=== PATIENT | male | born 1995 | race American Indian/Alaskan Native ===

== ENCOUNTER 2017-03-05 22:11 | Emergency (ER) | payer OTHER ==
[2017-03-05 22:38] VITALS: O2SAT 98
[2017-03-05] MEDS ORDERED: Lidocaine 2% Inj (20ml) INFIL ONE (22:53)
[2017-03-05] MEDS ORDERED: Lidocaine 1% Inj (20ml) ONE (22:54)
[2017-03-05] MEDS ORDERED: Lidocaine 2% Inj (20ml) ONE (22:55)
--- NOTE | 2017-03-05 22:56 | C.PDOC ---
History Of Present Illness 21 yo male come in for evaluation of Right index finger laceration sustained hour [employer]. Pt reports, " cut my finger with piece of metal". Noted mild oozing from wound. Otherwise, pt denies fever, chills, deformity,weakness, sensory or vascular deficits to injured finger. Ambulate to Ed for evaluation, not in any apparent distress. Time Seen by Provider: 03/05/17 22:40 Chief Complaint (Nursing): Abnormal Skin Integrity History Per: Patient Onset/Duration Of Symptoms: Sudden Onset Past Medical History Reviewed: Historical Data, Nursing Documentation, Vital Signs Vital Signs: Last Vital Signs Temp 97.6 F 03/05/17 23:13 Pulse 60 03/05/17 23:13 Resp 18 03/05/17 23:13 BP 118/75 03/05/17 23:13 Pulse Ox 99 03/05/17 23:13 - Medical History PMH: No Chronic Diseases Family History: States: No Known Family Hx - Social History Hx Alcohol Use: No Hx Substance Use: No - Immunization History Hx Tetanus Toxoid Vaccination: Yes (2 yrs ago) Hx Influenza Vaccination: Yes Hx Pneumococcal Vaccination: Yes Review Of Systems Except As Marked, All Systems Reviewed And Found Negative. Constitutional: Negative for: Fever, Chills Musculoskeletal: Positive for: Hand Pain Skin: Positive for: Lesions Neurological: Negative for: Weakness, Numbness Physical Exam - Physical Exam Appears: Well, Non-toxic, No Acute Distress Skin: Normal Color, Warm, Other ((+)1cm superficial laceration medial aspect Right 2nd distal phalanx over DIPJ, mild bloody oozing noted. FAROM, no tendon or ligament injury noted. No wound FB.) Extremity: Normal ROM (Right hand), No Tenderness, Capillary Refill (less than 2sec to Right hand), No Deformity, No Swelling Neurological/Psych: Oriented x3, Normal Speech, Normal Motor, Normal Sensation, Normal Reflexes ED Course And Treatment O2 Sat by Pulse Oximetry: 98 Progress Note: On re-evaluation, pt is afebrile, hemodynamiclay stable. Non- toxic. Right hand: laceration to index finger repaired w/skin adhesive. FAROM, no neurovascular deficits. tetanus is UTD. Pt was advised on course of ds and wound care. ref. to f/u with PMD in 2-3 days for re-eavl. Return if any sign of infection, or any worsening or new changes. Laceration - Laceration Repair Right index Wound Length (In cm): 1cm Description Of Wound: Linear Wound Examination: Irrigated With Saline, No FB With Wound Exploration Wound Closure: Steri Strips, Skin Glue Wound Complexity: Simple Disposition Counseled Patient/Family Regarding: Diagnosis, Need For Followup - Disposition Referrals: [facility] [Outside] Disposition: HOME/ ROUTINE Disposition Time: 23:00 Condition: STABLE Additional Instructions: Keep wound clean, dry for 3-4 days Avoid water exposure of injured finger for 3-4 days Light duty to injured finger return to Ed if sing of infection/any worsening or new changes. Instructions: Finger Laceration (ED), Skin Adhesive Care (ED) - Clinical Impression Clinical Impression: Laceration
[2017-03-05 23:30] VITALS: BP 118/75; PULSE 60; RESP 18; TEMP 97.6
== END 2017-03-05 23:22 | disposition home or self-care (01) ==
LOC: MERGE 22:11 → C.ER 22:11
DX: S61.210A Laceration without foreign body of right index finger without damage to nail, initial encounter (principal); W45.8XXA Other foreign body or object entering through skin, initial encounter; Y93.89 Activity, other specified; Y92.89 Other specified places as the place of occurrence of the external cause